=== PATIENT | male | born 2000 | race American Indian/Alaskan Native ===

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

== ENCOUNTER 2022-07-25 07:47 | Emergency (ER) | payer OTHER ==
[~2022-07-25] VITALS: Ht 182.9 cm; Wt 65.8 kg
--- OUTSIDE RECORDS SUMMARY | 2022-07-25 07:54 | XMS ---
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 Care History Medical/Surgical 04/05/2020 [facility] EL[facility], \T\middot;\T\nbsp; PLEASE REFER PATIENT TO [facility] FOR NON EMERGENT MEDICAL NEEDS. \T\middot;\T\nbsp; [facility] CAN SEE PATIENTS SAME DAY FOR APTS IF PATIENT CALLS FIRST THING IN THE MORNING. E.D. VISIT COUNT (12 MO.) 1 [facility]ERNANDA Barraza TOTAL 1 NOTE: Visits indicate total known visits. ED/UCC VISIT TRACKING (12 MO.) 07/25/2022 07:48 [facility] [place] TYPE: Emergency COMPLAINT: - R THUMB LACERATION INPATIENT VISIT TRACKING (12 MO.) No inpatient visits to display in this time frame [id number]
[2022-07-25 08:12] VITALS: BP 122/101
== END 2022-07-25 08:12 | disposition home or self-care (01) ==
LOC: ED 07:47
DX: S61.011A Laceration without foreign body of right thumb without damage to nail, initial encounter (principal); W20.8XXA Other cause of strike by thrown, projected or falling object, initial encounter
CPT/HCPCS: 99282